=== PATIENT | male | born 1960 | race American Indian/Alaskan Native ===

== ENCOUNTER 2018-04-18 00:16 | Inpatient (IN) | payer OTHER ==
[2018-04-18 00:20] VITALS: BMI 45.9
--- NOTE | 2018-04-18 00:20 | ED PDOC ---
Arrival/HPI - General Time Seen by Provider: 04/18/18 00:19 Historian: Patient - History of Present Illness Narrative History of Present Illness (Text): 04/18/18 00:19 Gen Landaverde is a 58 year old male, whose past medical history includes COPD, who presents to the emergency department brought in by EMS for shortness of breath. Patient states he developed progressively worsening shortness of breath with associated chest pain tonight prior to arrival. Patient notified EMS and patient was placed on BiPAP. Patient denies any fever, chills, abdominal pain, nausea, vomiting, diarrhea, urinary symptoms, back pain, neck pain, headache, dizziness, or any other complaints. Time/Duration: Other (tonight) Symptom Onset: Gradual Symptom Course: Worsening Activities at Onset: Light Context: Home Past Medical History - Provider Review Nursing Documentation Reviewed: Yes Family/Social History - Physician Review Nursing Documentation Reviewed: Yes Family/Social History: Unknown Family HX Allergies/Home Meds Allergies/Adverse Reactions: Allergies No Known Allergies Allergy (Verified 04/18/18 00:19) Home Medications: Home Meds Medication Instructions Recorded Confirmed Aspirin [Aspirin Chewable] 81 mg PO DAILY 04/18/18 04/18/18 Carvedilol [Coreg] 25 mg PO BID 04/18/18 04/18/18 Furosemide [Lasix] 40 mg PO DAILY 04/18/18 04/18/18 Rivaroxaban [Xarelto] 20 mg PO DAILY 04/18/18 04/18/18 Spironolactone [Aldactone] 04/18/18 04/18/18 Tiotropium [place] [Spiriva 1 puff IH Q4 PRN 04/18/18 04/18/18 Respimat] hydrALAZINE [hydralazine 25 mg PO DAILY PRN 04/18/18 04/18/18 Hydrochloride] Review of Systems - Physician Review All systems were reviewed & negative as marked: Yes - Review of Systems Constitutional: Normal. absent: Fevers Eyes: Normal ENT: Normal Respiratory: SOB Cardiovascular: Chest Pain Gastrointestinal: Normal. absent: Abdominal Pain, Diarrhea, Nausea, Vomiting Genitourinary Male: Normal. absent: Dysuria, Frequency, Hematuria, Urinary Output Changes Musculoskeletal: Normal. absent: Back Pain, Neck Pain Skin: Normal. absent: Rash Neurological: Normal. absent: Headache, Dizziness Endocrine: Normal Hemo/Lymphatic: Normal Psychiatric: Normal Physical Exam Vital Signs Reviewed: Yes Temperature: Afebrile Blood Pressure: Normal Pulse: Regular Respiratory Rate: Normal Appearance: Positive for: Well-Appearing, Non-Toxic, Comfortable Pain Distress: None Mental Status: Positive for: Alert and Oriented X 3 - Systems Exam Head: Present: Atraumatic, Normocephalic Pupils: Present: PERRL Extroacular Muscles: Present: EOMI Conjunctiva: Present: Normal Mouth: Present: Moist Mucous Membranes Neck: Present: Normal Range of Motion Respiratory/Chest: Present: Wheezes. No: Respiratory Distress, Accessory Muscle Use Cardiovascular: Present: Regular Rate and Rhythm, Normal S1, S2. No: Murmurs Abdomen: No: Tenderness, Distention, Peritoneal Signs Back: Present: Normal Inspection Upper Extremity: Present: Normal Inspection. No: Cyanosis, Edema Lower Extremity: Present: Normal Inspection. No: Edema Neurological: Present: GCS=15, CN II-XII Intact, Speech Normal Skin: Present: Warm, Dry, Normal Color. No: Rashes Psychiatric: Present: Alert, Oriented x 3, Normal Insight, Normal Concentration Medical Decision Making ED Course and Treatment: 04/18/18 00:20 Impression: 58 year old male complaining of worsening shortness of breath and chest pain. Plan: -- EKG -- CXR -- Labs, cardiac enzymes, BNP, blood cultures -- Duoneb -- Reassess and disposition Prior Visits: Notes and results from previous visits were reviewed. Progress Notes: Reviewed EKG, NSR at 84 bpm. Septal infarct. Non-specific T wave changes. 04/18/18 01:36 CXR reviewed, shows cardiomegaly, mild CHF. case d/w dr nash will admit to telemetry - RAD Interpretation Nursing Home Social Worker: ED Physician - EKG Interpretation Interpreted by ED Physician: Yes Type: 12 lead EKG - Scribe Statement The provider has reviewed the documentation as recorded by the Mariposa Corona Provider Scribe Attestation: All medical record entries made by the Scribe were at my direction and personally dictated by me. I have reviewed the chart and agree that the record accurately reflects my personal performance of the history, physical exam, medical decision making, and the department course for this patient. I have also personally directed, reviewed, and agree with the discharge instructions and disposition. Disposition/Present on Arrival - Present on Arrival Any Indicators Present on Arrival: No - Disposition Have Diagnosis and Disposition been Completed?: Yes Diagnosis: Congestive heart failure (CHF) Disposition: HOSPITALIZED Disposition Time: 01:30 Condition: FAIR
[2018-04-18] MEDS ORDERED: Albuterol-Ipratrop 3 mg / 0.5 (3 ml) UD IH STA (00:24)
[2018-04-18 00:39] LABS: BASO # 0.03 K/mm3 (0.0-2.0); BASO % 0.6 % (0.0-3.0); EOS # 0.3 (0.0-0.7); EOS % 6.1 % (1.5-5.0); HEMOGLOBIN 15.7 g/dL (14.0-18.0); LYMPH # 2.3 (1.2-3.4); LYMPH % 45.7 % (22.0-35.0); MEAN CELL VOLUME 81.7 fl (80.0-105.0); MEAN CORPUSCULAR HEMOGLOBIN 26.2 pg (25.0-35.0); MEAN PLATELET VOLUME 11.4 fl (7.0-11.0); MONO # 0.5 (0.1-0.6); MONO % 9.8 % (1.0-6.0); WHITE BLOOD COUNT 5.1 10^3/uL (4.5-11.0)
[2018-04-18 00:47] LABS: ALB/GLOB RATIO 1.2 (1.1-1.8); ALBUMIN 4.3 g/dL (3.0-4.8); BLOOD UREA NITROGEN 14 mg/dL (7-21); CALCIUM 9.3 mg/dL (8.4-10.5); GFR NON-AFRICAN AMERICAN > 60
[2018-04-18 00:49] LABS: INR 1.08; PARTIAL THROMBOPLASTIN TIME 31.5 Seconds (26.9-38.3)
[2018-04-18 00:58] LABS: B-TYPE NATRIURETIC PEPTIDE 702 pg/mL (0-450); TROPONIN I < 0.01 ng/mL
[2018-04-18 01:12] LABS: ALT/SGPT 27 U/L (7-56); AST/SGOT 37 U/L (17-59); CK-MB 2.6 ng/mL (0.0-3.6)
[2018-04-18] MEDS ORDERED: Albuterol-Ipratrop 3 mg / 0.5 (3 ml) UD IH PRN (01:50)
[2018-04-18 02:16] LABS: ARTERIAL BLOOD GAS HCO3 28.3 mmol/L (21-28); ARTERIAL BLOOD GAS HEMOGLOBIN 13.8 g/dL (11.7-17.4); ARTERIAL BLOOD GAS O2 CAPACITY 19.4 mL/dl (16-24); ARTERIAL BLOOD GAS O2 CONTENT 19.1 ML/dl (15-23); ARTERIAL BLOOD GAS O2 SAT 98.5 % (95-98); ARTERIAL BLOOD GAS PCO2 49 mm/Hg (35-45); ARTERIAL BLOOD GAS PH 7.37 (7.35-7.45); ARTERIAL BLOOD GAS TCO2 29.8 mmol.L (22-28)
--- NOTE | 2018-04-18 07:49 | RAD ---
Date of service: 04/18/2018 HISTORY: sob COMPARISON: No prior. FINDINGS: LUNGS: No active pulmonary disease. PLEURA: No significant pleural effusion identified, no pneumothorax apparent. CARDIOVASCULAR: No aortic atherosclerotic calcification present. Normal cardiac size. Borderline pulmonary vascular congestion. Defibrillator lead overlies left heart. OSSEOUS STRUCTURES: No significant abnormalities. VISUALIZED UPPER ABDOMEN: Normal. OTHER FINDINGS: None. IMPRESSION: Borderline pulmonary vascular congestion. No acute infiltrate, pleural effusion or pneumothorax. No cardiomegaly.
[2018-04-18] MEDS ORDERED: TIOTROPIUM BROMIDE IH PRN (10:10)
[2018-04-18] MEDS: MethylPREDNISolone 40 mg Vial IVP SCH (10:43)
--- NOTE | 2018-04-18 10:55 | CON ---
DATE OF CONSULTATION: 04/18/2018 PULMONARY CONSULTATION REFERRING PHYSICIAN FOR THIS PULMONARY CONSULTATION: Dr. Saldana. REASON FOR PULMONARY CONSULTATION: Chronic obstructive pulmonary disease. HISTORY OF PRESENT ILLNESS: The patient is a 58-year-old male, with past medical history significant for chronic obstructive pulmonary disease, atrial fibrillation (on Xarelto), who presents to [facility] with increasing shortness of breath at rest, dyspnea on exertion, cough, and minimal sputum production for the past 3 days. The patient also stated to transient chest pain - now resolved. No history of coughing up of blood. No history of chest pain - brought on with deep respirations. There is no history of temperatures, chills or infectious exposure. There is no history of night sweats, weight loss or appetite change prior to the above events. No history of calf pains. No history of syncope or diaphoresis. No history of recent travel or trauma. REVIEW OF SYSTEMS: No history of nausea, vomiting or diarrhea. No acute urinary symptoms. No new neurologic complaints. Rest of the review of systems is negative. ALLERGIES: NO KNOWN ALLERGIES. SOCIAL HISTORY: Positive for former tobacco usage. No alcohol. FAMILY HISTORY: No inheritable diseases. HOME MEDICATIONS: Include Coreg, aspirin, Lasix, Xarelto, Spiriva, hydralazine, and Aldactone. PHYSICAL EXAMINATION: GENERAL: The patient appears quite comfortable this morning at the time of my examination. He is not short of breath at rest. He is not using accessory muscles for breathing. VITAL SIGNS: Temperature is 98.1, pulse 67, respirations 16, blood pressure 118/66. Oxygen saturation on room air - 96%. HEENT: Normocephalic, atraumatic. NECK: No JVD. CARDIOVASCULAR: Positive S1, S2. Questionable S3 gallop. LUNGS: Decreased breath sounds at the bases. Scattered bilateral rhonchi and wheezing are appreciated. EXTREMITIES: Mild edema. No cyanosis. No clubbing. Calves are nontender to palpation. GASTROINTESTINAL: Abdomen is soft, nontender, nondistended. Bowel sounds are positive. SKIN: No acute rash. NEUROLOGIC: Exam limited at the present time. PERTINENT LABORATORY DATA: Chest x-ray was done this morning and reviewed. There is mild pulmonary vascular congestion noted. CBC: White count 5.1K, hemoglobin 15.7, hematocrit 49, platelets of 241,000. Arterial blood gas was done on 50% oxygen. Results are: PH 7.37, pCO2 of 49, pO2 of 176. Complete metabolic profile: Glucose 172, creatinine kinase 384. B-type natriuretic peptide 702. Rest of the metabolic profile is within normal limits. IMPRESSION 1. Acute bronchitis. 2. Chronic obstructive pulmonary disease. 3. Mild congestive heart failure. 4. Chronic atrial fibrillation. PLAN: The patient presents to [facility] with a 3-day history of worsening pulmonary symptoms. I did discuss the history with the patient and at length. I did review the chest x-ray as above. The chest x-ray reveals mild pulmonary vascular congestion. I have also reviewed the laboratory data. A moderate rise in the B-type natriuretic peptide is noted. Cardiology evaluation with Dr. Doss has been ordered. The patient did get Lasix in the emergency room. On physical exam, there is [id number] bronchospasm noted. However, there is no significant alveolar-arterial gradient. The patient has been placed on intravenous steroids. I will add DuoNeb treatments and inhaled steroids. There is no history of temperatures. There is no leukocytosis. Clinical status of the patient appears significantly improved - compared to the initial presentation. He is now resting comfortably and on room air. Additional pulmonary intervention will be based on the clinical status of the patient. I will discuss the above with Dr. Saldana. Thank you very much for this pulmonary consultation. Sage Leonardo MD MTDGino
--- NOTE | 2018-04-18 13:51 | CON ---
DATE OF CONSULTATION: 04/18/2018 CARDIOLOGY CONSULTATION HISTORY: The patient is a 58-year-old male, who presents with acute shortness of breath. It is relieved by intravenous Lasix. PAST MEDICAL HISTORY: The patient's past medical history is notable for COPD. In addition, he suffers from atrial fibrillation treated with Xarelto and Coreg. He suffers from hypertension. No previous myocardial infarction in the past. He has had no cardiac testing. The patient was admitted to [facility] recently, which sounds like a CHF episode. No further followup is noted. SOCIAL HISTORY: The patient is a former smoker. REVIEW OF SYSTEMS: Fourteen-point review of systems is reviewed in detail. Negative edema in the lower extremities. No angina. Positive shortness of breath. No orthopnea. No PND. No syncope. No dizziness. PHYSICAL EXAMINATION: VITAL SIGNS: Blood pressure is 118/66, heart rate is 67, normal sinus rhythm. NECK: Negative JVD. LUNGS: Bilateral lower lobe wheezing. CARDIAC: Heart revealed S1, S2. EXTREMITIES: Without edema. LABORATORY DATA: Laboratories revealed an EKG that shows no acute changes. Hemoglobin is 15.7. Chemistries, BUN and creatinine are unremarkable. The glucose is 172. Troponin is negative x1 with a ProBNP of 702. IMPRESSION: 1. Acute dyspnea. 2. Exacerbation of chronic obstructive pulmonary disease. 3. Mild congestive heart failure. 4. Hypertension. 5. Diabetes mellitus. 6. Atrial fibrillation. PLAN: Given these findings, I agree with IV Lasix. We will obtain an echocardiogram. The patient is to be admitted to telemetry. Miguel Ángel Doss MD
[2018-04-18] MEDS: Albuterol-Ipratrop 3 mg / 0.5 (3 ml) UD IH SCH ×2 (14:30→20:30)
--- NOTE | 2018-04-18 15:20 | CARD ---
APPROVED REPORT Date of service: 04/18/2018 EKG Measurement Heart [id number] <Conclusion> Normal sinus rhythm Low voltage QRS Nonspecific intraventricular conduction delay Septal infarct, age undetermined T wave abnormality, consider lateral ischemia Abnormal ECG
[2018-04-18] MEDS ORDERED: Pneumococcal 23-Valent Vaccine IM ONE (19:42)
[2018-04-18] MEDS ORDERED: Influenza Vaccine 60 mcg/0.5 mL SYR (4YR UP) IM ONE (19:42)
--- NOTE | 2018-04-18 20:10 | HP ---
DATE OF EXAM: 04/18/2018 HISTORY OF PRESENT ILLNESS: I was called down to the emergency room today to admit him. He is comfortable at this time. He did have BiPAP, CHF, COPD and with very short of breath. He is a 58-year-old man who presents to the emergency room being admitted with shortness of breath progressively worsening over the past 24 hours. He was placed on BiPAP. PAST MEDICAL HISTORY: COPD and CHF, still he got worse. FAMILY HISTORY: Unknown family history. ALLERGIES: NO KNOWN DRUG ALLERGIES. MEDICATIONS: He is on aspirin, Coreg, Lasix, Xarelto, Aldactone, Spiriva, and hydralazine. REVIEW OF SYSTEMS: No acute vision or hearing changes. There is shortness of breath. There is cough. There is wheezing. There is chest pain. No abdominal pain, nausea, or vomiting. No problems urinating. No back pain or neck pain. No rashes seen itching. No headache. No dizziness. PHYSICAL EXAMINATION: VITAL SIGNS: He has a 98.1 temperature, 67 pulse, 118/66 blood pressure, 16 respiratory rate, and 100% O2 sat on BiPAP. GENERAL: He is sitting out of bed, little bit short of breath on oxygen. He is well-appearing, nontoxic, alert and oriented x3. HEENT: Head is atraumatic and normocephalic. Extraocular muscles are intact. Pupils equal and reactive to light. Throat is moist. NECK: Supple. HEART: Regular rate. Normal S1 and S2. LUNGS: Decreased breath sounds. There is wheezing, shortness of breath, and coughing. ABDOMEN: Soft and nontender. Positive bowel sounds. Morbidly obese. EXTREMITIES: +4/4 pitting edema bilateral lower extremities. GCS is 15. Cranial nerves II through XII grossly intact. SKIN: Warm and dry. No apparent rashes or ulcers. NEUROLOGIC: Alert and oriented x3. LYMPHS: Thyroid midline. No palpable appreciable lymphadenopathy. He is here for CHF, COPD type of a picture. He is on Apresoline, aspirin, Coreg, DuoNeb, Lasix, Spiriva, Xarelto, and I am going to put him on little bit of Solu-Medrol for the wheezing. LABORATORY DATA: He has 137 sodium, potassium 4.3, BUN 14, creatinine 1, GFR is greater than 60, sugar is 172, calcium 9.3, and magnesium 1.9. Total bili is 0.4. AST is 37, ALT is 27, alk phos is 54, and lactate dehydrogenase 679. BNP was 702, put him on Lasix 40 IV b.i.d. Total protein is 8.1 and albumin is 4.3. INR 1.08. White count 5.1, hemoglobin 15.7, hematocrit 49 with 241 platelets. Chest x-ray showed borderline pulmonary vascular congestion, no acute infiltrate, pleural effusions, no cardiomegaly. ASSESSMENT AND PLAN: He will get some Solu-Medrol, DuoNebs, regular meds, diuresing, and pulmonary and cardio evaluation for congestive heart failure and chronic obstructive pulmonary disease. Declan Saldana DO MTDGino
[2018-04-18] MEDS: Budesonide 0.5 mg/2 ml Inhal Susp UD IH SCH (20:30)
[2018-04-19] MEDS: Albuterol-Ipratrop 3 mg / 0.5 (3 ml) UD IH SCH ×5 (03:00→19:55)
[2018-04-19 07:19] LABS: HEMOGLOBIN 14.4 g/dL (14.0-18.0); MEAN CELL VOLUME 79.9 fl (80.0-105.0); MEAN CORPUSCULAR HGB CONC 32.6 g/dl (31.0-37.0); MEAN PLATELET VOLUME 11.6 fl (7.0-11.0); RBC 5.53 10^6/uL (3.5-6.1); RED CELL DISTRIBUTION WIDTH 14.8 % (11.5-14.5); WHITE BLOOD COUNT 11.3 10^3/uL (4.5-11.0)
[2018-04-19 07:38] LABS: B-TYPE NATRIURETIC PEPTIDE 1740 pg/mL (0-450)
[2018-04-19 07:53] LABS: ALB/GLOB RATIO 1.1 (1.1-1.8); ALBUMIN 3.9 g/dL (3.0-4.8); ALT/SGPT 28 U/L (7-56); AST/SGOT 34 U/L (17-59); BLOOD UREA NITROGEN 15 mg/dL (7-21); GFR NON-AFRICAN AMERICAN > 60
--- NOTE | 2018-04-19 08:30 | PN ---
DATE: 04/19/2018 PULMONARY NOTE SUBJECTIVE: The patient appears very comfortable this morning. He is not short of breath at rest. PHYSICAL EXAMINATION: VITAL SIGNS: Temperature is 98.0, pulse 62, respirations 18/20, blood pressure 139/85. Oxygen saturation on nasal cannula is 97%--100%. HEENT: Normocephalic, atraumatic. NECK: No JVD. CARDIOVASCULAR: Positive S1, S2. Questionable S3 gallop. LUNGS: Improved breath sounds at the bases. Less rhonchi. Less wheezing. EXTREMITIES: Less edema. No cyanosis. No clubbing. Calves are nontender to palpation. GI: Abdomen is soft, nontender and nondistended. Bowel sounds are positive. SKIN: No acute rash. NEUROLOGIC: Limited at the present time. IMPRESSION: 1. Acute bronchitis. 2. Chronic obstructive pulmonary disease. 3. Mild congestive heart failure. 4. Chronic atrial fibrillation. PLAN: The patient appears much more comfortable this morning. He is not short of breath at rest. He does state to feeling much better overall. On physical exam, there is certainly less bronchospasm noted. In addition, the alveolar-arterial gradient is also less. I will continue the current nebulizer treatments and low-dose intravenous steroids for now. Hopefully, we will be able to transition the patient to oral therapy in the next 24 to [address] Dsos (Cardiology) is also noted. The patient remains on intravenous Lasix. Clinical status of the patient is significantly improved - compared to yesterday. However, given the above, the future status/prognosis for this patient does remain somewhat guarded. I will discuss the above with Dr. Saldana. Sage Leonardo MD DARIUSZ
[2018-04-19] MEDS: Budesonide 0.5 mg/2 ml Inhal Susp UD IH SCH ×2 (08:32→19:55)
[2018-04-19] MEDS: MethylPREDNISolone 40 mg Vial IVP SCH ×2 (10:34→21:51)
--- NOTE | 2018-04-19 11:49 | PN ---
DATE: 04/19/2018 SUBJECTIVE: He is sitting up in bed, eating his breakfast. He is in good spirits. He wants to shower. His legs are not swollen. He is wheezing a little bit, but not as bad. Discussed with Pulmonary, Dr. Leonardo. We will continue with same Solu-Medrol 30, right now may be tomorrow we could drop it down. It thought may be in the next 24 to 48 hours he might be dischargeable. He is on Lasix 40 mg IV b.i.d. as per Cardiology. PHYSICAL EXAMINATION: VITAL SIGNS: He has a 98 temperature, 90 pulse, 139/85 blood pressure, 20 respiratory rate, and 97% O2 saturation on 2 L. HEENT: Head is atraumatic and normocephalic. LUNGS: Decreased breath sounds. Occasional wheeze. Changes with cough. ABDOMEN: Soft. Morbidly obese. EXTREMITIES: No edema at this time. MEDICATIONS: He is on Apresoline, aspirin, Coreg, DuoNeb, Lasix 40 IV b.i.d., Pulmicort, Solu-Medrol 30 b.i.d. IV, Tylenol, Xarelto. LABORATORY DATA: He has 138 sodium, potassium 4.4, BUN 15, creatinine 0.8, GFR is greater than 60, sugar is 116, calcium is 9, total bili is 0.4, AST 34, ALT 20, alk phos 61. BNP 1740, total protein 7.5. White count 11.3, from the steroids. Hemoglobin 14.4, hematocrit 44.2, and platelets 251. We will continue with pulmonary and cardio treatment. Hopefully in the next 24 to 48 hours if he is improving, we will discharge him. I will let him shower today. The patient has got chronic obstructive pulmonary disease, congestive heart failure picture. Declan Saldana DO
--- NOTE | 2018-04-19 13:19 | PN ---
DATE: 04/19/2018 CARDIOLOGY FOLLOWUP SUBJECTIVE: The patient is breathing better. He is ambulating with physical therapy without issues. PHYSICAL EXAMINATION: VITAL SIGNS: Blood pressure 134/64, heart rates in the 70s. NECK: Negative JVD. LUNGS: Decreased wheezing, but still present. HEART: Revealed S1 and S2. EXTREMITIES: Without edema. LABORATORY DATA: White count is up to 11.3. Chemistry: BUN and creatinine are unremarkable. The glucose is 116. IMPRESSION: 1. Bronchitis with bronchospasm. 2. Mild congestive heart failure. 3. Chronic atrial fibrillation. 4. Dyspnea. 5. Morbid obesity. 6. Hypertension. 7. Diabetes mellitus. PLAN: Given these findings, the patient's CHF symptoms are resolved. We will change his Lasix to p.o. His predominant issue now is persistent bronchospasm for which he is currently on steroids. I have discussed with the patient about the need for cardiac workup once his bronchospasm is better. The patient is agreeable for an outpatient stress test, which we will schedule. Miguel Ángel Doss MD
[2018-04-19] MEDS: Albuterol-Ipratrop 3 mg / 0.5 (3 ml) UD IH PRN (19:53)
[2018-04-20] MEDS: Albuterol-Ipratrop 3 mg / 0.5 (3 ml) UD IH SCH ×4 (01:16→19:25)
[2018-04-20] MEDS: Budesonide 0.5 mg/2 ml Inhal Susp UD IH SCH ×2 (07:17→19:24)
[2018-04-20 08:37] LABS: HEMOGLOBIN 14.5 g/dL (14.0-18.0); MEAN CORPUSCULAR HEMOGLOBIN 25.7 pg (25.0-35.0); MEAN CORPUSCULAR HGB CONC 31.7 g/dl (31.0-37.0); MEAN PLATELET VOLUME 11.8 fl (7.0-11.0); RBC 5.64 10^6/uL (3.5-6.1); RED CELL DISTRIBUTION WIDTH 15.2 % (11.5-14.5); WHITE BLOOD COUNT 9.7 10^3/uL (4.5-11.0)
[2018-04-20 09:04] LABS: ALB/GLOB RATIO 1.1 (1.1-1.8); ALBUMIN 4.1 g/dL (3.0-4.8); ALT/SGPT 37 U/L (7-56); AST/SGOT 50 U/L (17-59); BLOOD UREA NITROGEN 19 mg/dL (7-21); CALCIUM 9.5 mg/dL (8.4-10.5); GFR NON-AFRICAN AMERICAN > 60
[2018-04-20] MEDS: MethylPREDNISolone 40 mg Vial IVP SCH ×3 (09:21→21:35)
[2018-04-20] MEDS ORDERED: MethylPREDNISolone 40 mg Vial IVP SCH (10:14)
--- NOTE | 2018-04-20 17:09 | PN ---
DATE: 04/20/2018 SUBJECTIVE: I came to see him this morning. He is sitting up in bed, extremely congested, coughing, wheezing, short of breath. He is being seen by pulmonary and cardio. He is on Apresoline, aspirin, Coreg, DuoNebs. asked for a stat DuoNeb treatment. Lasix was changed from IV to p.o., Pulmicort. Solu-Medrol was decreased from 30 to 20. I am going to bounce it back up again, give him a stat dose Tylenol and Xarelto. PHYSICAL EXAMINATION: VITAL SIGNS: He has a 98.8 temperature, 67 pulse, 148/75 blood pressure, 80 respiratory rate. HEAD: Atraumatic and normocephalic. HEART: Regular rate. LUNGS: Congestion bilaterally with wheezing bilaterally, changes with cough, a little bit short of breath. ABDOMEN: Soft, morbidly obese. EXTREMITIES: Trace edema. LABORATORY DATA: He has a 9.7 white count, 14.5 hemoglobin, 45.7 hematocrit with 252 platelets. 139 sodium, potassium 4.5, BUN 19, creatinine 0.9, GFR is greater than 60, sugar is 165, calcium is 9.5. Total bilirubin is 0.6, AST is 50, ALT is 37, alkaline phosphatase 64, total protein 7.8. ASSESSMENT AND PLAN: He is having acute exacerbation of chronic obstructive pulmonary disease and congestive heart failure, has atrial fibrillation, morbidly obese. He is having acute shortness of breath issue at this moment. We will try and discharge him tomorrow. We will see how he does. Declan Saldana DO MTDD
[2018-04-20] MEDS: Albuterol-Ipratrop 3 mg / 0.5 (3 ml) UD IH PRN (18:27)
[2018-04-21] MEDS: Albuterol-Ipratrop 3 mg / 0.5 (3 ml) UD IH SCH ×2 (03:10→07:56)
[2018-04-21] MEDS: MethylPREDNISolone 40 mg Vial IVP SCH (06:39)
[2018-04-21 07:03] LABS: HEMOGLOBIN 15.3 g/dL (14.0-18.0); MEAN CELL VOLUME 80.6 fl (80.0-105.0); MEAN CORPUSCULAR HGB CONC 32.2 g/dl (31.0-37.0); MEAN PLATELET VOLUME 11.3 fl (7.0-11.0); RBC 5.89 10^6/uL (3.5-6.1); RED CELL DISTRIBUTION WIDTH 15.1 % (11.5-14.5); WHITE BLOOD COUNT 10.3 10^3/uL (4.5-11.0)
[2018-04-21 07:41] LABS: ALB/GLOB RATIO 1.1 (1.1-1.8); ALBUMIN 4.2 g/dL (3.0-4.8); ALT/SGPT 37 U/L (7-56); AST/SGOT 32 U/L (17-59); BLOOD UREA NITROGEN 24 mg/dL (7-21); CALCIUM 9.6 mg/dL (8.4-10.5); GFR NON-AFRICAN AMERICAN > 60
[2018-04-21] MEDS: Budesonide 0.5 mg/2 ml Inhal Susp UD IH SCH (07:57)
[2018-04-21 09:45] VITALS: BP 149/98; PULSE 63
[2018-04-21 11:24] VITALS: RESP 20; TEMP 98; O2SAT 100
--- NOTE | 2018-04-21 13:42 | PN ---
DATE: 04/21/2018 PULMONARY PROGRESS NOTE SUBJECTIVE: The patient is improved. He is sitting in bed, fully dressed waiting to be discharged from the hospital. He does not complain of any shortness of breath. He has an occasional cough which is self-limiting. PHYSICAL EXAMINATION: GENERAL: The patient is comfortable in no acute distress. VITAL SIGNS: His vital signs remain stable according to the RN. His respiratory rate is 16 to 18, blood pressure 140/80, pulse 64, O2 saturation was 100% before discontinuing his oxygen. HEENT: Normocephalic, atraumatic. NECK: Supple. No JVD. No bruit. No lymphadenopathy. CARDIOVASCULAR: Regular rhythm. S1, S2. No gallop appreciated. LUNGS: Good breath sounds, essentially clear to percussion and auscultation. ABDOMEN: Soft. Bowel sounds normoactive without mass, guarding, rebound or organomegaly. EXTREMITIES: Reveal no clubbing, cyanosis or edema. NEUROLOGIC: The patient is awake and alert, oriented, ambulatory with no problems. CLINICAL IMPRESSION: 1. Status post acute bronchitis. 2. Chronic obstructive pulmonary disease. 3. Congestive heart failure. 4. Chronic atrial fibrillation. PLAN: I have discussed the patient's discharge planning at length. He is being discharged on medications by Dr. Saldana. He will see his own cost estimating manager in [place] over the next 1 to 3 days. I have offered him the ability to see us if he is unable to obtain adequate pulmonary followup. He is in good spirits and anxious to be discharged. He will contact us if any further information is required from us and feels comfortable contacting the office in the future if necessary. Thank you for the opportunity to care for this soraya patient. Dangelo Fine MD
--- NOTE | 2018-04-21 23:23 | DS ---
HISTORY OF PRESENT ILLNESS: He is sitting up in bed. He is feeling a lot better. He is doing better. He is breathing better. Less cough, a little bit bad, but not as bad. He is going to be discharged today. MEDICATIONS: He is on Apresoline, aspirin, Coreg, DuoNeb, Lasix, Pulmicort, prednisone 40 for 3 days, 30 for 3 days, 20 for 3 days, 10 for 3 days and then stop, and Xarelto. PHYSICAL EXAMINATION: VITAL SIGNS: He has a 98.8 temp, 70 pulse, 136/80 blood pressure, and 18 respiratory rate. HEENT: Head is atraumatic and normocephalic. HEART: Regular rate. LUNGS: Much clearer. Some congestion, clears with cough but improved. ABDOMEN: Soft, morbidly obese. EXTREMITIES: Trace edema if any. LABORATORY DATA: He has a 10.2 white count, 15.2 hemoglobin, 47.5 hematocrit, with 272 platelets. Sodium 137, potassium 4.6, BUN 24, creatinine 1. GFR greater than 60. Sugar is 118, calcium 9.6, total bili is 0.6, AST 32, ALT 37, alk phos 59, and total protein is 8. ASSESSMENT AND PLAN: He was seen by Pulmonary and Cardiology. He has bronchitis, bronchospasm, mild congestive heart failure, chronic atrial fibrillation, dyspnea, and morbid obesity. We will watch him closely on the outpatient and I will see on Sunday in my office. Declan Saldana DO
--- NOTE | 2018-04-22 08:32 | PN ---
DATE: 04/20/2018 PULMONARY PROGRESS NOTE SUBJECTIVE: The patient is feeling much better but still has some congestion, complains of intermittent cough. He is anxious to be discharged, but does not know the intent of the other physicians. PHYSICAL EXAMINATION: VITAL SIGNS: Remain stable. The patient is afebrile. Temperature 98.4, pulse 60, respiratory rate 18, blood pressure 140/80, O2 saturation 100% on nasal cannula. HEENT: Normocephalic, atraumatic. NECK: Supple. No JVD. No bruit. No thyromegaly. CARDIOVASCULAR: Regular rhythm. S1, S2. No murmur, gallop or rub is appreciated. CHEST: Global improvement in breath sounds. Minimal rhonchi. No wheezes. ABDOMEN: Soft. Bowel sounds normoactive without mass, guarding, rebound or organomegaly. EXTREMITIES: Show no clubbing or cyanosis. There is trace edema remaining. NEUROLOGIC: Shows no focal findings. IMPRESSION: 1. Acute bronchitis. 2. History of chronic obstructive pulmonary disease. 3. Congestive heart failure. 4. Cardiac arrhythmia. PLAN: Continue current therapy for both heart and lung problems. I have decrease the corticosteroids today. This can be further decreased over the next 48 hours. We will continue to treat this patient gently. Closely awaiting cardiac intervention. Dangelo Fine MD MTDD
--- NOTE | 2018-04-22 13:20 | CARD ---
APPROVED REPORT Date of service: 04/19/2018 EXAM: Two-dimensional and M-mode echocardiogram with Doppler and color Doppler. INDICATION Congestive Heart Failure 2D DIMENSIONS Left Atrium (2D)4.5 (1.6-4.0cm)IVSd1.8 (0.7-1.1cm) LVDd5.9 (3.9-5.9cm)PWd1.7 (0.7-1.1cm) LVDs4.5 (2.5-4.0cm)FS (%) 24.0 % LVEF (%)47.2 (>50%) M-Mode DIMENSIONS Aortic Root3.70 (2.2-3.7cm)Aortic Cusp Exc.2.00 (1.5-2.0cm) Aortic Valve AoV Peak Razhuorb013.0cm/Adam Peak GR.9mmHg Mitral Valve MV E Mavhbdou005.0cm/sMV A Hrzsgclb81.1cm/sE/A ratio1.7 TDI E/Lateral E'0.0E/Medial E'0.0 LEFT VENTRICLE There is mild concentric left ventricular hypertrophy. The systolic function is mildly impaired. RIGHT VENTRICLE The right ventricle is normal size. ATRIA The left atrium is mildly dilated. The right atrium size is normal. AORTIC VALVE The aortic valve is thickened but opens well. MITRAL VALVE The mitral valve is thickened but opens well. TRICUSPID VALVE The tricuspid valve leaflets are thickened , but open well. PERICARDIAL EFFUSION There is no pericardial effusion. <Conclusion> LVH Mild LV hypokinesis Mild LA Mild TR No pulmonary hypertension
== END 2018-04-21 11:23 | disposition home or self-care (01) | DRG 190 ==
LOC: ED 00:16 → ERH 01:49 → 2RNO 04-19 00:31 → 3RNO 04-20 14:42
PROVIDERS: ADMIT Family Medicine; ATTEND Family Medicine
PROC: 5A09357 Assistance with Respiratory Ventilation, Less than 24 Consecutive Hours, Continuous Positive Airway Pressure (ICD-10-PCS; principal; 2018-04-18)
PROC: 5A09357 Assistance with Respiratory Ventilation, Less than 24 Consecutive Hours, Continuous Positive Airway Pressure (ICD-10-PCS; 2018-04-19)
DX: J44.1 Chronic obstructive pulmonary disease with (acute) exacerbation (principal); I50.23 Acute on chronic systolic (congestive) heart failure; Z68.42 Body mass index [BMI] 45.0-49.9, adult; I11.0 Hypertensive heart disease with heart failure; J44.0 Chronic obstructive pulmonary disease with (acute) lower respiratory infection; J20.9 Acute bronchitis, unspecified; I48.2 Chronic atrial fibrillation; E11.9 Type 2 diabetes mellitus without complications; E66.01 Morbid (severe) obesity due to excess calories; Z87.891 Personal history of nicotine dependence; Z79.899 Other long term (current) drug therapy; Z79.82 Long term (current) use of aspirin; Z79.01 Long term (current) use of anticoagulants

== ENCOUNTER 2018-05-11 21:49 | Observation (INO) | payer OTHER | END 2018-05-12 16:23 | disposition home or self-care (01) | LOC: ERH 05-12 05:15 → ED 21:49 → ERH 05-12 05:34 → 3RNO 05-12 05:54 ==